=== PATIENT | female | born 1945 | race Caucasian/White ===

== ENCOUNTER 2019-07-01 11:00 | Day surgery (SDC) | payer MEDICARE, BC ==
[~2019-07-01] VITALS: Ht 160 cm; Wt 97.5 kg
[2019-07-01 11:28] LABS: HEMATOCRIT 34.3 % (36.0-48.0); HEMOGLOBIN 11.2 g/dL (12-16); MCH 28.6 pg (26.0-34.0); MCHC 32.7 g/dL (31.0-37.0); MCV 87.5 fL (80.0-100.0); MEAN PLATELET VOLUME 8.2 fL (7.4-10.4); RBC 3.92 10x6/uL (4.00-5.40); WBC 4.4 10x3/uL (4.8-10.8)
[2019-07-01 11:41] LABS: ANION GAP 10.5 mmol/L (8-16); CALCIUM 8.6 mg/dL (8.5-10.1); CARBON DIOXIDE 31.2 mmol/L (21.0-32.0); CREATININE - SERUM 1.7 mg/dL (0.6-1.3); POTASSIUM - SERUM 4.7 mmol/L (3.5-5.1)
[2019-07-01] MEDS ORDERED: SULFAMETHOXAZOL1 TA2 PO (12:46)
[2019-07-01] MEDS ORDERED: CLOBETASOL PROP50 ML TOPICAL (12:47)
[2019-07-01] MEDS ORDERED: GLUCOPHAGE500 MG PO (12:47)
[2019-07-01] MEDS ORDERED: FUROSEMIDE40 MG PO (12:48)
[2019-07-01] MEDS ORDERED: SYNTHROID150 MCG PO (12:48)
[2019-07-01] MEDS ORDERED: PROTONIX40 MG (12:49)
[2019-07-01] MEDS ORDERED: COZAAR25 MG PO (12:52)
[2019-07-01 13:21] VITALS: BP 120/64; Ht 160 cm; Wt 97.5 kg
--- NOTE | 2019-07-01 14:47 | NUR ---
1434-REC'D FROM GI LAB. DROWSY, EASILY AROUSED. DENIES PAIN.VSS. IV PATENT AT [facility]. AT BEDSIDE, CL IN EASY REACH.
--- NOTE | 2019-07-01 15:10 | NUR ---
FULL LIQUID TRAY TO ROOM. DENIES COMPLAINTS
--- NOTE | 2019-07-01 16:02 | NUR ---
1530-DISCHARGE CRITERIA MET. REMOVED IV FROM RIGHT HAND WITH CATH INTACT,DISPOSED INTO SHARPS CONTAINER. REVIEWED DISCARGE INSTRUCTIONS WITH PT AND SPOUSE,VERBALIZED UNDERSTANDING. ESCORTED OUT VIA W/C WITH SPOUSE DRIVING HOME.
--- NOTE | 2019-07-02 17:39 | OP ---
PATIENT NAME: LISSA KONG MEDICAL RECORD: [id number] :41 LOCATION:D.[facility] ADMISSION DATE: SURGEON: KELIN BELTRÁN DO DATE OF OPERATION: 07/01/2019 PROCEDURE: Colonoscopy with polypectomy. INDICATIONS FOR PROCEDURE: Screening for colorectal cancer and history of colon polyps. SCOPE: [employer] video pediatric colonoscope. MEDICATIONS: Propofol 540 mg IV per anesthesia. WITHDRAWAL TIME: 21 minutes. ESTIMATED BLOOD LOSS: Minimal. COMPLICATIONS: None. FINDINGS AND DESCRIPTION OF PROCEDURE: Informed consent was given. The patient was made comfortable with the above medication. After reaching an adequate level of sedation by slow IV push, the patient was placed on her left side. A digital rectal examination was performed and it was normal. The endoscope was then advanced under direct visualization through the rectum to the cecum, confirmed by the presence of the appendiceal orifice and ileocecal valve. The endoscope was slowly withdrawn and the mucosa was carefully examined. The prep quality was good. There were 4 polyps visualized on today's examination. The first was located in the ascending colon. It was a benign-appearing sessile polyp, which measured approximately 5 mm in diameter. It was removed using a hot snare in 1 piece and completely retrieved. In the transverse colon, there were two separate polyps, which were benign-appearing and sessile. They ranged in size from 2-4 mm in diameter. They were both removed using hot forceps. In the descending colon, there was a single benign-appearing sessile polyp, which measured approximately 3-4 mm in diameter. It was removed using hot forceps. There was evidence of mild diverticulosis involving the descending and sigmoid colon. There was a past resection with anastomosis located in the sigmoid region. Retroflexion was performed in the rectum with visualization of grade I internal hemorrhoids without active bleeding. The endoscope was withdrawn from the patient. The patient tolerated the procedure well and there were no complications. IMPRESSION: 1. Multiple polyps as described above, removed using a combination of a hot snare and hot forceps. 2. Diverticulosis. 3. Previous resection involving the sigmoid region. 4. Grade I internal hemorrhoids without bleeding. PLAN AND RECOMMENDATIONS: 1. Discharge home when recovery parameters are met. 2. Follow up biopsy specimen results. 3. High fiber diet. 4. Continue current medications. 5. No further recalls are necessary based on the patient's age, unless symptoms OPERATIVE REPORT [id number] LISSA KONG warrant evaluation. TRANSINT:[id number] Voice Confirmation ID: [id number] DOCUMENT ID: [id number] KELIN BELTRÁN DO at 1739 CC: [id number] DICTATION DATE: 07/01/19 1429 MASTER FISHER: 07/01/19 1445 [facility] 07/01/19 [place] [id number]
== END 2019-07-01 15:30 | disposition home or self-care (01) ==
LOC: D.OPS 11:00
PROVIDERS: Anesthesiology; ATTEND Internal Medicine Gastroenterology
DX: Z12.11 Encounter for screening for malignant neoplasm of colon (principal); K63.5 Polyp of colon; Z86.010 Personal history of colon polyps

== ENCOUNTER 2019-08-17 07:05 | Day surgery (SDC) | payer MEDICARE, BC ==
[~2019-08-17] VITALS: Ht 160 cm; Wt 102.3 kg
[~2019-08-17 07:05] MED LIST: CLOBETASOL PROP50 ML TOPICAL; COZAAR25 MG PO; FUROSEMIDE40 MG PO; GLUCOPHAGE500 MG PO; PROTONIX40 MG; SULFAMETHOXAZOL1 TA2 PO; SYNTHROID150 MCG PO
[2019-08-17 07:23] LABS: BASOPHILS 0.2 % (0-2); EOSINOPHILS 3.6 % (0-7); HEMATOCRIT 35.7 % (36.0-48.0); HEMOGLOBIN 11.4 g/dL (12-16); IMMATURE GRANULOCYTES 0.2 % (0-5); LYMPHOCYTES 21.4 % (15-50); MCH 29.1 pg (26.0-34.0); MCHC 31.9 g/dL (31.0-37.0); MCV 91.1 fL (80.0-100.0); MEAN PLATELET VOLUME 8.7 fL (7.4-10.4); MONOCYTES 5.7 % (2-11); NEUTROPHILS 68.9 % (40-80); PLATELET COUNT 194 10x3/uL (130-400); RBC 3.92 10x6/uL (4.00-5.40); RDW 14.8 % (11.5-14.5); WBC 5.2 10x3/uL (4.8-10.8)
[2019-08-17 07:28] LABS: ANION GAP 8.8 mmol/L (8-16); CALCIUM 8.6 mg/dL (8.5-10.1); CARBON DIOXIDE 33.9 mmol/L (21.0-32.0); CREATININE - SERUM 1.3 mg/dL (0.6-1.3); POTASSIUM - SERUM 4.7 mmol/L (3.5-5.1)
[2019-08-17 07:58] VITALS: BP 110/55; Ht 160 cm; Wt 102.3 kg
[2019-08-17] MEDS ORDERED: BAYER CHEWABLE81 MG PO (08:05)
[2019-08-17] MEDS ORDERED: CLARITIN 10 MG10 MG PO (08:05)
--- NOTE | 2019-08-17 09:07 | NUR ---
0900-RECD TO ROOM FROM GI LAB. ALERT. RESP WITH EASE. DENIES PAIN. REPOSITIONED FOR COMFORT. ABD SOFT. DENIES NAUSEA, CHEST PAIN.
--- NOTE | 2019-08-17 09:15 | NUR ---
0915- VOISE IN TO REPORT FINDINGS AND ANSWER QUESTIONS.
--- NOTE | 2019-08-17 10:52 | NUR ---
1000 PT C/O STOMACH PAIN EARLIER. UP TO BR WITH ASSISTANCE AND PT WAS ABLE TO PASS FLATUS AND STOMACH IS NOT HURTING AT PRESENT. C/O SL MCCULLOUGH AT THE MOMENT. B/P UP. PT HAS GOT 1000CC NS IN GI LAB. PT HAS TAKEN HER METFORMIN AND LASIX THAT SHE BROUGHT FROM HOME. PT IS LYING DOWN AFTER SITTING ON SOB TO EAT FULL LIQUID BREAKFAST. 1025 PT B/P RETURNING TO BASELINE. PT DENIES MCCULLOUGH AT PRESENT. HER PRESCRIPTION WAS CALLED IN TO PHARMACY PER PATIENT REQUEST. PT WANTS LAB RESULTS FROM TODAY TO TAKE TO OTHER DOCTOR VISITS. ENCOURAGED PT TO GO BY MEDICAL RECORDS TO OBTAIN THIS INFO.
--- NOTE | 2019-08-17 10:57 | NUR ---
0955 IV DC'D. CATHETER TIP INTACT. NO BLEEDING AT SITE. BANDAID APPLIED.
--- NOTE | 2019-08-17 17:17 | OP ---
PATIENT NAME: LISSA KONG MEDICAL RECORD: [id number] :41 LOCATION:[facility] ADMISSION DATE: SURGEON: KELIN BELTRÁN DO DATE OF OPERATION: 08/17/2019 PROCEDURE: EGD with biopsies. INDICATIONS FOR PROCEDURE: Dysphagia. SCOPE: Olympus video gastroscope. MEDICATIONS: Propofol 200 mg IV per anesthesia. ESTIMATED BLOOD LOSS: Minimal. COMPLICATIONS: None. FINDINGS: Informed consent was given. The patient was made comfortable with the above medication. After reaching an adequate level of sedation by slow IV push, the patient was placed in the left side. The endoscope was advanced under direct visualization through the mouth to the second portion of the duodenum with ease. The esophagus appeared normal, other than the presence of [place] throughout the entire esophagus. Cold forceps, biopsies were taken from the midesophagus to submit for histopathology. At the GE junction, there were changes consistent with LA class A reflux-induced esophagitis and also a distal esophageal ring. The ring was dilated using a 16-18 mm CRE dilating balloon up to 18 mm maximum diameter successfully. The endoscope was advanced beyond the GE junction into the stomach and retroflexed to view the cardia and fundus, which appeared normal. The body of the stomach appeared normal as well. There were a few gastric polyps, which were benign-appearing and likely of the fundic gland type located in the body of the stomach. A cold forceps biopsy was taken in one of these polyps to submit for histopathology. The antrum and prepyloric regions of the stomach appeared normal. Cold forceps biopsies were taken randomly to submit for histopathology and to rule out the presence of H. pylori. The endoscope was advanced beyond the pylorus into the duodenum, which appeared normal to the second portion. The endoscope was then withdrawn from the patient. The patient tolerated the procedure well and there were no complications. IMPRESSION: 1. Candidal esophagitis. 2. LA class A reflux-induced esophagitis. 3. Distal esophageal ring, status post dilation to 18 mm. 4. Few benign-appearing fundic gland type gastric polyps with a biopsy taken. PLAN AND RECOMMENDATIONS: 1. Discharge home when recovery parameters are met. 2. Follow up biopsy specimen results. 3. GERD diet and reflux precautions. 4. We will schedule the patient for a modified barium swallow regarding the symptoms of oropharyngeal dysphagia. 5. Continue current medications including pantoprazole daily. 6. We will provide a prescription for 5 days of fluconazole for treatment of candidal esophagitis. 7. Further recommendations to follow findings on modified barium swallow. OPERATIVE REPORT [id number] LISSA KONG TRANSINT:[id number] Voice Confirmation ID: [id number] DOCUMENT ID: [id number] KELIN BELTRÁN DO at 1717 CC: [id number] DICTATION DATE: 08/17/19 0858 [facility] SAMPLER: 08/17/19 1052 [facility] 08/17/19 [facility] [address] [place] [address]
== END 2019-08-17 10:35 | disposition home or self-care (01) ==
LOC: D.OPS 07:05
PROVIDERS: Anesthesiology; ATTEND Internal Medicine Gastroenterology
DX: R13.10 Dysphagia, unspecified (principal); B37.81 Candidal esophagitis; K22.2 Esophageal obstruction; K31.7 Polyp of stomach and duodenum

== ENCOUNTER → 2019-08-20 12:14 | Outpatient (CLI) | payer MEDICARE, BC ==
[2019-08-17 07:58] VITALS: BMI 39.9
[~2019-08-20 12:14] MED LIST changes: +BAYER CHEWABLE81 MG PO; +CLARITIN 10 MG10 MG PO
== END | disposition home or self-care (01) ==
LOC: D.RAD 12:14
PROVIDERS: ATTEND Internal Medicine Gastroenterology
DX: R13.10 Dysphagia, unspecified (principal)

== ENCOUNTER → 2020-01-12 07:23 | Outpatient (CLI) | payer MEDICARE, BC ==
[2019-08-17 07:58] VITALS: BMI 39.9
== END | disposition home or self-care (01) ==
LOC: D.RT 01-08 11:30
PROVIDERS: ATTEND Internal Medicine Pulmonary Disease
DX: J44.9 Chronic obstructive pulmonary disease, unspecified (principal)